=== PATIENT | female | born 1995 | race Hispanic/Latino ===

== ENCOUNTER 2018-11-13 22:20 | Emergency (ER) | payer OTHER ==
[~2018-11-13] VITALS: Ht 157.5 cm; Wt 46.3 kg
[~2018-11-13 22:20] MED LIST: FERROUS SULFAT325 MG; PRENA1 CHEW TA1.4 MG; SPRINTEC1 EACH PO
--- NOTE | 2018-11-14 07:23 | EKG ---
[facility] [address] [facility] [place] [address] Signed Sinus tachycardia Nonspecific ST and T wave abnormality Abnormal ECG When compared with ECG of 13-NOV-2018 22:59, (Unconfirmed) Vent. rate has increased BY [address] now depressed in Inferior leads ST now depressed in Anterolateral leads Nonspecific T wave abnormality now evident in Anterolateral leads Confirmed by ALYSE BARKER MD ([id number]) on 11/14/2018 7:23:03 AM Electronically Signed By: ALYSE BARKER MD 11/14/18 0723 PATIENT NAME: MIMI KENNEDY Electrocardiogram DATE OF : [birth year] PHYSICIAN: ALYSE BARKER MD REPORT #: [id number] REPORT IS CONFIDENTIAL AND NOT TO BE RELEASED WITHOUT AUTHORIZATION
--- NOTE | 2018-11-14 07:23 | EKG ---
[facility] [address] [facility] [place], [place] [address] Signed Normal sinus rhythm Normal ECG No previous ECGs available Confirmed by ALYSE BARKER MD ([id number]) on 11/14/2018 7:22:53 AM Electronically Signed By: ALYSE BARKER MD 11/14/18 0723 PATIENT NAME: MIMI KENNEDY Electrocardiogram DATE OF : [birth year] PHYSICIAN: ALYSE BARKER MD REPORT #: [id number] REPORT IS CONFIDENTIAL AND NOT TO BE RELEASED WITHOUT AUTHORIZATION
== END 2018-11-14 01:50 | disposition home or self-care (01) ==
LOC: ED 22:20
DX: G43.909 Migraine, unspecified, not intractable, without status migrainosus (principal); R00.0 Tachycardia, unspecified; Z88.8 Allergy status to other drugs, medicaments and biological substances; Z51.81 Encounter for therapeutic drug level monitoring
CPT/HCPCS: 70450; 71045; 80053; 81001; 83735; 84439; 84443; 84703; 85025; 85610; 85730; 93005; 93010; 96361; 99284-25; J0780; J1100; J1200; J1885; J2060; J3475; J7030

== ENCOUNTER 2020-02-07 06:05 | Day surgery (SDC) | payer OTHER ==
[~2020-02-07] VITALS: Ht 154.9 cm; Wt 48.5 kg
--- NOTE | ~2020-02-07 | OR ---
[facility] [address] [facility] [place], [place] [address] Draft DATE OF OPERATION: 02/07/2020 SURGEON: Angelita Rodríguez MD PREOPERATIVE DIAGNOSIS: Cervical intraepithelial neoplasia 3. POSTOPERATIVE DIAGNOSIS: Cervical intraepithelial neoplasia 3, pending pathology. PROCEDURE: LEEP. ANESTHESIA: General LMA. ESTIMATED BLOOD LOSS: Minimal. DRAINS: None. INDICATIONS AND FINDINGS: The patient is a 25-year-old female, 2, para 2, currently using control pills for control, who was diagnosed with RAJESH 3 earlier this year. She had previously been scheduled for LEEP in the OR, but this was canceled due to the coronavirus issues. The patient has significant anxiety issue and was unable to tolerate the procedure in the office, so therefore the procedure was postponed until her surgery could be performed. At the time of surgery, exam under anesthesia was normal. With Lugol's, there was a nonstaining area in the anterior cervix, but the posterior cervix was completely staining. DESCRIPTION OF PROCEDURE: The patient was prepped and draped in the dorsal lithotomy position. The insulated speculum was placed and the cervix was stained with Lugol's. The medium with loop was used and the exocervix was completely excised including all the nonstaining area and the specimen retrieved. As this was pulled out, there was a tear noted at 3 o'clock. Her previous ECC was negative and a further endocervical specimen was not obtained. The base and the surrounding edges were treated with the ball cautery with good hemostasis noted. Following this, the cervix was treated with Monsel's solution. The tension on PATIENT NAME: MIMI KENNEDY OPERATIVE REPORT DATE OF : [birth year] REPORT #: [id number] PHYSICIAN: ANGELITA RODRÍGUEZ MD PCP: BRYSON ACKERMAN REPORT IS CONFIDENTIAL AND NOT TO BE RELEASED WITHOUT AUTHORIZATION [facility] [address] [place], [place] [address] Draft the speculum was reduced. There was no evidence of any ongoing bleeding. The procedure was then terminated. The patient was taken to the recovery room in good condition. MD SANDRA ToroW/EMEKA /[id number] Copies: ~ PATIENT NAME: MIMI KENNEDY OPERATIVE REPORT DATE OF : [birth year] REPORT #: [id number] PHYSICIAN: ANGELITA RODRÍGUEZ MD PCP: BRYSON ACKERMAN REPORT IS CONFIDENTIAL AND NOT TO BE RELEASED WITHOUT AUTHORIZATION
[~2020-02-07 06:05] MED LIST changes: +DROSPIRENONE-E1 EACH PO; +IRON325 M1 PO; +PROZAC40 MG PO; +VITAMIN D350 MC2 PO
--- NOTE | 2020-02-07 07:01 | NUR ---
pt concerned with getting medications. increased anxiety thinking fluid going into her vein. 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
--- NOTE | 2020-02-07 08:31 | NUR ---
02/07/20 0831 [place] 0751 PT ARRIVED IN PACU NON RESPONSIVE TO NOXIOUS STIMULI WITH OPA IN PLACE. 0804 PT REACTIVE. OPA REMOVED. 0805 AT BEDSIDE TALKING WITH PT. 0815 PT ASKING QUESTIONS ABOUT SURGERY AND MEDS GIVEN. RN ANSWERED ALL QUESTIONS. 0820 TO DS. REPORT GIVEN TO RN.
--- NOTE | 2020-02-07 09:38 | NUR ---
AMB TO BR VOIDS 100MLS CLEAR YELLOW URINE. REQUESTS TO GO HOME. GETTING DRESSED SPOTTING AND HAS TE PAD ON.
--- NOTE | 2020-02-14 08:56 | PATH ---
[facility] [address] [place], [place] [address] Signed SPECIMEN(S): A EXOCERVIX SPECIMEN SOURCE: A. EXOCERVIX CLINICAL HISTORY: RAJESH 3. FINAL PATHOLOGIC DIAGNOSIS: Exocervix, excision: - High-grade squamous intraepithelial lesion (HSIL, RAJESH 3). COMMENT: The HSIL is not seen at the cauterized specimen edges; clinical correlation required. As part of [facility]' Quality Improvement Program, this case was reviewed by another member of our pathology staff. NAL:cml:C2NR MICROSCOPIC EXAMINATION: Histologic sections of all submitted blocks are examined by light microscopy. Immunohistochemical stains (with appropriately staining controls) for p16 were performed on blocks A1 and A2, demonstrating strong, block-like positivity in the areas of HSIL. These findings, together with the gross examination, support the pathologic diagnosis. GROSS DESCRIPTION: The specimen, labeled "NE, exocervix," is received in formalin and consists of two irregular shaped, unoriented, pink-kinsey tissue fragments that aggregate measure 1.5 x 1.2 x 0.6 cm. Specimen is inked and sectioned. Specimen is entirely submitted in cassettes (A1-A2). JS (under the direct supervision of a pathologist) The Gross Description was prepared using a voice recognition system. The report was reviewed for accuracy; however, sound-alike word errors, addition and/or deletions may occur. If there is any question about this report, please contact Client Services. ADDITIONAL NOTES: Immunohistochemical and/or in situ hybridization studies were performed on this case with the appropriate positive controls that react as expected. This test PATIENT NAME: MIMI KENNEDY PATHOLOGY DATE OF : [birth year] REPORT #: [id number] PHYSICIAN: ANA BUSTAMANTE PCP: BRYSON ACKERMAN REPORT IS CONFIDENTIAL AND NOT TO BE RELEASED WITHOUT AUTHORIZATION [facility] [address] [place], [place] [address] Signed was developed and its performance characteristics determined by [facility]. It has not been cleared or approved by the U.S. Food and Drug Administration. The FDA has determined that such clearance or approval is not necessary. This test is used for clinical purposes. It should not be regarded as investigational or for research. [facility] is certified under the Clinical Laboratory Improvement Amendments of 1988 (CLIA) as qualified to perform high complexity clinical laboratory testing. PERFORMING LABORATORY: The technical component was performed by [facility], [address] [place] [id number] ([employer]: Tiffani Meza MD; CLIA# [id number]). Professional interpretation was performed by [facility], [address] [address] (CLIA# [id number]). Diagnostician: Teri Meneses MD Pathologist Electronically Signed 02/14/2020 Copies: ~ PATIENT NAME: MIMI KENNEDY PATHOLOGY DATE OF : [birth year] REPORT #: [id number] PHYSICIAN: ANA BUSTAMANTE PCP: BRYSON ACKERMAN REPORT IS CONFIDENTIAL AND NOT TO BE RELEASED WITHOUT AUTHORIZATION
== END 2020-02-07 09:40 | disposition home or self-care (01) ==
LOC: DS 06:05
PROVIDERS: Obstetrics & Gynecology
PROC: 0UBC7ZX Excision of Cervix, Via Natural or Artificial Opening, Diagnostic (ICD-10-PCS; principal; 2020-02-07 06:45)
DX: D06.1 Carcinoma in situ of exocervix (principal); F32.9 Major depressive disorder, single episode, unspecified; F41.9 Anxiety disorder, unspecified; Z79.899 Other long term (current) drug therapy
CPT/HCPCS: 00940; 88307; 88342; J1100; J1885; J2001; J2405; J2704; J3010; J7121